=== PATIENT | male | born 1975 | race African-American/Black ===

== ENCOUNTER 2019-12-08 17:54 | Inpatient (IN) ==
--- NOTE | 2019-12-08 18:10 | DR.FEVERAD ---
HPI Time seen Time Seen by Provider: 12/08/19 18:07 PCP Primary Care Physician: CAMILLA HPI Comment HPI Comment: 44 yo aam w/ prev hx of htn presents w/ myalgias, cough, fatigue, n/v/d x 6 days. Swabed for covid earlier in month which was negative. No CP. No blood per rectum. No urinary sx's. Complaints/Symptoms Chief Complaint:: PT C/O SHORTNESS OF BREATH, FEVER, BODY ACHES, HEADACHE. PT STATES HE WAS DIAGNOSED WITH COVID TODAY. PT HAS BEEN HAVING SYMPTOMS FOR APPROX 6 DAYS. COVID-19 Coronavirus risk:travel/contact w/high risk person: No Has patient experienced Coronavirus symptoms: Yes Coronavirus symptoms experienced: Fever, Coughing and Shortness of Breath Source History Provided: Patient Mode of Arrival Mode of Arrival: Ambulatory Timing Onset of Chief Complaint: 12/02/19 Came on: Gradually Duration Duration: Since Onset How lon Duration: Days Context Symptoms: Fever, Chills, Cough and SOB; denies Ear pain, Sore throat, Dysuria, Frequency and Rash History of: denies Diabetes Modifying factors Modifying factors: Tylenol Associated signs and symptoms Associated signs and symptoms: Weakness, Myalgia, Headache, Nausea and Vomiting; denies Lethargy, Confusion and Abdominal pain PMH PMH Past Medical History: Yes Past Medical History: Hypertension Past Surgical History: Yes Surgical History: Joint Replacement Family History History of Family Medical Conditions: Yes Family Medical History: Hypertension Social History Does any household member use tobacco: No Alcohol Use: Occasionally Do you use any recreational Drugs:: No Lives With: Family Lives Where: Home Travel Risk Coronavirus risk:travel/contact w/high risk person: No Has patient experienced Coronavirus symptoms: Yes Coronavirus symptoms experienced: Fever, Coughing and Shortness of Breath Infectious screening In the last 2 months have you had wt loss of >10#?: NO Have you had fever, night sweats or hemotysis?: No Have you traveled outside the country in the last 6 months?: No Isolation: Droplet ROS Review of Systems Constitutional: Chills, Fever, Malaise and Fatigue Eyes: No Symptoms Reported ENTM: No Symptoms Reported Respiratoy: Productive Cough and Short of Breath Cardiovascular: negative Chest Pain, Palpitations and Syncope Gastrointestinal/Abdominal: No Symptoms Reported Genitourinary: No Symptoms Reported Neurological: No Symptoms Reported Musculoskeletal: No Symptoms Reported Integumentary: No Symptoms Reported Hematologic/Lymphatic: No Symptoms Reported Endocrine: No Symptoms Reported Psychiatric: No Symptoms Reported All Other Systems: Reviewed and Negative PE Vital Signs Vitals: Temperature 97.5 F Pulse Rate 101 Respiratory Rate 24 Blood Pressure 136/78 O2 Sat by Pulse Oximetry 89 General Limitations: No Limitations General Appearance: Alert and In No Apparent Distress Head Head Exam: Normal Inspection Eyes Eye exam: Normal Appearance ENT ENT Exam: Normal Exam Neck Neck Exam: Normal Inspection Respiratory Respiratory Exam: negative Accessory Muscle Use, Chest Wall Tenderness and Respiratory Distress Respiratory Exam: Bilateral: Rhonchi Cardiovascular Cardiovascular Exam: Regular Rate and Normal Rhythm Abdominal Exam Abdominal Exam: Normal Inspection, Normal Bowel Sounds and Soft Extremities Extremities Exam: Normal Inspection Back Back Exam: Normal Inspection Neurologic Neurological Exam: Alert and Oriented X3 Psychiatric Psychiatric Exam: Normal Affect and Normal Mood Skin Skin Exam: Warm, Dry, Intact and Normal Color MDM Differential Diagnosis Differential Diagnosis: Hypoxemia, Influenza, Pulmonary embolus, Pneumonia, Sepsis and Viral syndrome COURSE Treatment Treatment: 44 yo m w/ covid like sx's. CXR w/ multifocal infiltrate. Hypoxemia per abg requiring supplemental o2. Inflammatory markers elevated. Azithro/ Rocephin/ Decadron given. d/w Dr Bear whom agrees to admit. ROR Labs Reviewed Result Diagrams: 12/08/19 18:40 12/08/19 18:40 Laboratory: WBC 5.4 X10^3/uL (3.6-10.0) 12/08/19 18:40 RBC 4.97 X10^6/uL (4.7-6.0) 12/08/19 18:40 Hgb 14.6 g/dL (13.5-18.0) 12/08/19 18:40 Hct 42.0 % (42.0-54.0) 12/08/19 18:40 MCV 84.5 fL (80.0-100.0) 12/08/19 18:40 MCH 29.3 pg (27.0-34.0) 12/08/19 18:40 MCHC 34.7 g/dL (33.0-35.0) 12/08/19 18:40 RDW 13.9 % (11.6-16.5) 12/08/19 18:40 Plt Count 195 X10^3/uL (150.0-450.0) 12/08/19 18:40 MPV 9.1 fL (7.4-11.0) 12/08/19 18:40 Neut % (Auto) 71.4 % (42.0-75.0) 12/08/19 18:40 Lymph % (Auto) 22.3 % (21.0-51.0) 12/08/19 18:40 [place] % (Auto) 6.0 % (0.0-13.0) 12/08/19 18:40 Eos % (Auto) 0.0 % (0.9-2.9) L 12/08/19 18:40 Baso % (Auto) 0.3 % (0.2-1.0) 12/08/19 18:40 Neut # (Auto) 3.9 x10^3/uL (2.2-4.8) 12/08/19 18:40 Lymph # (Auto) 1.2 X10^3/uL (1.3-2.9) L 12/08/19 18:40 [place] # (Auto) 0.3 x10^3/uL (0.3-0.8) 12/08/19 18:40 Eos # (Auto) 0.0 x10^3/uL (0.0-0.2) 12/08/19 18:40 Baso # (Auto) 0.0 X10^3/uL (0.0-0.1) 12/08/19 18:40 Absolute Nucleated RBC 0.5 /100WBC 12/08/19 18:40 Sample Site Rrad 12/08/19 19:38 ABG pH 7.460 (7.35-7.45) H 12/08/19 19:38 ABG pCO2 40.0 mmHg (35.0-45.0) 12/08/19 19:38 ABG pO2 54.0 mmHg (80.0-100.0) L 12/08/19 19:38 ABG HCO3 28.4 mmol/L (22-26) H 12/08/19 19:38 ABG O2 Saturation 89.0 % (90-100) L 12/08/19 19:38 ABG Base Excess 4.2 mmol/L (-2.0-2.0) H 12/08/19 19:38 Julian Test Pos 12/08/19 19:38 A-a Gradient 46.0 mmHg 12/08/19 19:38 FiO2 21.0 12/08/19 19:38 Blood Gas Comments Lexus abg well=mtf 12/08/19 19:38 Sodium 141 mmol/L (136-145) 12/08/19 18:40 Corrected Sodium TNP 12/08/19 18:40 Potassium 3.8 mmol/L (3.5-5.1) 12/08/19 18:40 Chloride 103 mmol/L (98-107) 12/08/19 18:40 Carbon Dioxide 30.1 mmol/L (21-32) 12/08/19 18:40 BUN 17 mg/dL (7-18) 12/08/19 18:40 Creatinine 1.44 mg/dL (0.70-1.30) H 12/08/19 18:40 Est GFR (MDRD) Af Amer > 60 (>60) 12/08/19 18:40 Est GFR (MDRD) Non-Af 57 (>60) L 12/08/19 18:40 Glucose 95 mg/dL (65-99) 12/08/19 18:40 Lactic Acid 1.4 mmol/L (0.4-2.0) 12/08/19 18:40 Calcium 8.7 mg/dL (8.5-10.1) 12/08/19 18:40 Corrected Calcium TNP 12/08/19 18:40 Ferritin 1344 ng/mL (26-388) H 12/08/19 18:40 Total Bilirubin 1.00 mg/dL (0.2-1.0) 12/08/19 18:40 AST 73 Units/L (15-37) H 12/08/19 18:40 ALT 86 Units/L (12-78) H 12/08/19 18:40 Alkaline Phosphatase 72 Units/L (46-116) 12/08/19 18:40 Lactate Dehydrogenase 464 Units/L (85-227) H 12/08/19 18:40 Troponin I 0.04 ng/mL (0-1.5) 12/08/19 18:40 C-Reactive Protein 25.00 mg/L (0-3.0) H 12/08/19 18:40 Total Protein 9.1 g/dL (6.4-8.2) H 12/08/19 18:40 Albumin 3.5 g/dL (3.4-5.0) 12/08/19 18:40 Globulin 5.6 g/dL (2.5-4.5) H 12/08/19 18:40 Albumin/Globulin Ratio 0.6 Ratio (1.1-2.1) L 12/08/19 18:40 EKG Rate: 95 [place]: Normal Rhythm: NSR Block: None ST: Normal (artifact ) Opioid Opioid Risk Tool Age (Michael box if 16-45): No History of Preadolescent Sexual Abuse: No Total: 0 Total Score Risk Category: Low Risk Copyright: Lauri LUCOI predicting aberrant behaviors Diagnosis Discharge Problem: COVID-19, Acute hypoxemic respiratory failure due to COVID-19 Community acquired pneumonia Qualifiers: Laterality: unspecified laterality Qualified Code(s): J18.9 - Pneumonia, unspecified organism
--- NOTE | 2019-12-08 18:32 | RAD ---
CHEST, 1 VIEWHISTORY: covid +Study: Single view of the chest.Comparison:NoneFindings:The cardiomediastinal silhouette is normal. Bilateral interstitial prominence, possible early alveolar infiltrates. No focal consolidations, pleural effusions or pneumothorax. Osseous structures demonstrate no acute abnormality.IMPRESSION:1. Bilateral interstitial prominence and early alveolar infiltrates. Findings may represent atypical infection, including viral etiologies.Electronically signed by: RHIANNON GIORDANO (Dec 08, 2019 18:31:58)
[2019-12-08 18:58] LABS: BASOPHILS % (AUTO) 0.3 % (0.2-1.0); HEMOGLOBIN 14.6 g/dL (13.5-18.0); LYMPHOCYTES # (AUTO) 1.2 X10^3/uL (1.3-2.9); LYMPHOCYTES % (AUTO) 22.3 % (21.0-51.0); MEAN CORPUSCULAR HEMOGLOBIN 29.3 pg (27.0-34.0); MEAN CORPUSCULAR HGB CONC 34.7 g/dL (33.0-35.0); MEAN CORPUSCULAR VOLUME 84.5 fL (80.0-100.0); MEAN PLATELET VOLUME 9.1 fL (7.4-11.0); MONOCYTES # (AUTO) 0.3 x10^3/uL (0.3-0.8); NEUTROPHILS # (AUTO) 3.9 x10^3/uL (2.2-4.8); NEUTROPHILS % (AUTO) 71.4 % (42.0-75.0); PLATELET COUNT 195 X10^3/uL (150.0-450.0); RED BLOOD COUNT 4.97 X10^6/uL (4.7-6.0); RED CELL DISTRIBUTION WIDTH 13.9 % (11.6-16.5); WHITE BLOOD COUNT 5.4 X10^3/uL (3.6-10.0)
[2019-12-08 19:15] LABS: ALANINE AMINOTRANSFERASE 86 Units/L (12-78); ALBUMIN 3.5 g/dL (3.4-5.0); ALKALINE PHOSPHATASE 72 Units/L (46-116); ASPARTATE AMINO TRANSFERASE 73 Units/L (15-37); BLOOD UREA NITROGEN 17 mg/dL (7-18); CALCIUM 8.7 mg/dL (8.5-10.1); CARBON DIOXIDE 30.1 mmol/L (21-32); CHLORIDE 103 mmol/L (98-107); CREATININE 1.44 mg/dL (0.70-1.30); LACTATE DEHYDROGENASE 464 Units/L (85-227); SODIUM 141 mmol/L (136-145); TOTAL PROTEIN 9.1 g/dL (6.4-8.2); TROPONIN I 0.04 ng/mL (0-1.5); eGFR NON BLACK RACES 57 (>60)
[2019-12-08 19:16] LABS: LACTIC ACID 1.4 mmol/L (0.4-2.0)
[2019-12-08] MEDS ORDERED: ZITHROMAX INJ 500 MG VIAL 500 MG in D5W 250 ML IV 250 ML IV SCH (19:36)
[2019-12-08 19:45] LABS: ABG BASE EXCESS 4.2 mmol/L (-2.0-2.0); ABG HCO3 28.4 mmol/L (22-26)
[2019-12-08 19:46] LABS: ABG ALLEN TEST POS
[2019-12-08] MEDS ORDERED: ROCEPHIN VIAL 1 GRAM 1 G in NS 100 ML IV + SPIKE MINIBAG* 100 ML IV SCH (20:00)
[2019-12-08] MEDS ORDERED: DECADRON INJ IV SCH (20:00)
[2019-12-08] MEDS ORDERED: ZITHROMAX INJ 500 MG VIAL IV ONE (23:23)
[2019-12-08] MEDS ORDERED: NS 250 ML IV 250 ML IV ONE (23:23)
[2019-12-08] MEDS ORDERED: LOVENOX INJ 40 MG SYR SC ONE (23:33)
[2019-12-08] MEDS: LOVENOX INJ 30 MG SYR SC SCH (23:36)
[2019-12-08] MEDS ORDERED: SOLU-Medrol 125 MG VIAL ONE (23:37)
[2019-12-08] MEDS ORDERED: REMDESIVIR (INVESTIGATIONAL DRUG GS-5734) 200 MG in NS 250 ML IV 250 ML IV SCH (23:45)
[2019-12-09] MEDS: SOLU-Medrol 125 MG VIAL IVP SCH ×4 (00:51→21:16)
[2019-12-09] MEDS: ZOSYN VIAL 4.5 GRAMS 4.5 G in NS 100 ML IV + SPIKE MINIBAG* 100 ML IV SCH ×4 (01:30→22:40)
[2019-12-09] MEDS: ASCORBIC ACID INJ MULTI-DOSE VIAL 1,500 MG in NS 100 ML IV 100 ML IV SCH ×4 (03:27→20:54)
[2019-12-09 05:42] LABS: BASOPHILS % (AUTO) 0.1 % (0.2-1.0); LYMPHOCYTES # (AUTO) 0.8 X10^3/uL (1.3-2.9); LYMPHOCYTES % (AUTO) 13.9 % (21.0-51.0); MEAN CORPUSCULAR HEMOGLOBIN 29.4 pg (27.0-34.0); MEAN CORPUSCULAR HGB CONC 34.9 g/dL (33.0-35.0); MEAN CORPUSCULAR VOLUME 84.2 fL (80.0-100.0); MEAN PLATELET VOLUME 9.1 fL (7.4-11.0); MONOCYTES # (AUTO) 0.1 x10^3/uL (0.3-0.8); MONOCYTES % (AUTO) 2.3 % (0.0-13.0); NEUTROPHILS # (AUTO) 4.8 x10^3/uL (2.2-4.8); NEUTROPHILS % (AUTO) 83.7 % (42.0-75.0); PLATELET COUNT 204 X10^3/uL (150.0-450.0); RED BLOOD COUNT 4.75 X10^6/uL (4.7-6.0); RED CELL DISTRIBUTION WIDTH 14.1 % (11.6-16.5); WHITE BLOOD COUNT 5.7 X10^3/uL (3.6-10.0)
[2019-12-09 05:52] LABS: ALANINE AMINOTRANSFERASE 90 Units/L (12-78); ALBUMIN 3.3 g/dL (3.4-5.0); ALKALINE PHOSPHATASE 68 Units/L (46-116); ASPARTATE AMINO TRANSFERASE 73 Units/L (15-37); BLOOD UREA NITROGEN 20 mg/dL (7-18); CALCIUM 8.5 mg/dL (8.5-10.1); CHLORIDE 103 mmol/L (98-107); COR CA(FOR HYPOALB) 9.1 mg/dL (8.5-10.1); COR NA(FOR HYPERGLY) 142 mmol/L (136-145); CREATININE 1.55 mg/dL (0.70-1.30); SODIUM 141 mmol/L (136-145); TOTAL PROTEIN 8.7 g/dL (6.4-8.2); eGFR NON BLACK RACES 52 (>60)
[2019-12-09] MEDS ORDERED: VITAMIN D (1.25MG) PO SCH (09:00)
[2019-12-09] MEDS ORDERED: VITAMIN A PO SCH (09:00)
[2019-12-09] MEDS: TRICOR TAB 160 MG PO SCH (09:04)
[2019-12-09] MEDS: LOVENOX INJ 30 MG SYR SC SCH ×2 (09:04→20:54)
[2019-12-09] MEDS: ZINC SULFATE PO SCH ×2 (09:05→20:55)
[2019-12-09] MEDS ORDERED: NORCO 5/325 MG TAB PO PRN (11:34)
[2019-12-09] MEDS: PLAQUENIL PO SCH ×2 (14:49→20:55)
[2019-12-09] MEDS: ROBITUSSIN DM PO SCH ×3 (14:49→20:56)
[2019-12-09] MEDS: PROTONIX INJ 40 MG VIAL IVP SCH (15:15)
[2019-12-09] MEDS: ZITHROMAX INJ 500 MG VIAL 500 MG in D5W 250 ML IV 250 ML IV SCH (23:18)
[2019-12-10] MEDS: REMDESIVIR (INVESTIGATIONAL DRUG GS-5734) 100 MG in NS 250 ML IV 250 ML IV SCH ×2 (01:16→22:30)
[2019-12-10] MEDS: ASCORBIC ACID INJ MULTI-DOSE VIAL 1,500 MG in NS 100 ML IV 100 ML IV SCH ×4 (03:30→20:35)
[2019-12-10] MEDS: ZOSYN VIAL 4.5 GRAMS 4.5 G in NS 100 ML IV + SPIKE MINIBAG* 100 ML IV SCH ×3 (05:36→21:11)
[2019-12-10] MEDS: SOLU-Medrol 125 MG VIAL IVP SCH ×3 (05:36→21:06)
[2019-12-10 05:55] LABS: BASOPHILS % (AUTO) 0.2 % (0.2-1.0); HEMATOCRIT 39.1 % (42.0-54.0); HEMOGLOBIN 13.5 g/dL (13.5-18.0); LYMPHOCYTES # (AUTO) 0.9 X10^3/uL (1.3-2.9); LYMPHOCYTES % (AUTO) 15.8 % (21.0-51.0); MEAN CORPUSCULAR HEMOGLOBIN 29.3 pg (27.0-34.0); MEAN CORPUSCULAR HGB CONC 34.6 g/dL (33.0-35.0); MEAN CORPUSCULAR VOLUME 84.6 fL (80.0-100.0); MEAN PLATELET VOLUME 9.5 fL (7.4-11.0); MONOCYTES # (AUTO) 0.4 x10^3/uL (0.3-0.8); MONOCYTES % (AUTO) 6.7 % (0.0-13.0); NEUTROPHILS # (AUTO) 4.5 x10^3/uL (2.2-4.8); NEUTROPHILS % (AUTO) 77.3 % (42.0-75.0); PLATELET COUNT 270 X10^3/uL (150.0-450.0); RED BLOOD COUNT 4.63 X10^6/uL (4.7-6.0); RED CELL DISTRIBUTION WIDTH 14.3 % (11.6-16.5); WHITE BLOOD COUNT 5.8 X10^3/uL (3.6-10.0)
[2019-12-10 06:10] LABS: ALANINE AMINOTRANSFERASE 84 Units/L (12-78); ALBUMIN 3.1 g/dL (3.4-5.0); ALKALINE PHOSPHATASE 63 Units/L (46-116); ASPARTATE AMINO TRANSFERASE 53 Units/L (15-37); BLOOD UREA NITROGEN 25 mg/dL (7-18); CALCIUM 8.6 mg/dL (8.5-10.1); CARBON DIOXIDE 25.3 mmol/L (21-32); CHLORIDE 104 mmol/L (98-107); COR CA(FOR HYPOALB) 9.3 mg/dL (8.5-10.1); COR NA(FOR HYPERGLY) 141 mmol/L (136-145); CREATININE 1.35 mg/dL (0.70-1.30); SODIUM 140 mmol/L (136-145); TOTAL PROTEIN 8.6 g/dL (6.4-8.2); eGFR NON BLACK RACES > 60 (>60)
[2019-12-10] MEDS: LOVENOX INJ 30 MG SYR SC SCH ×2 (09:17→20:35)
[2019-12-10] MEDS: PLAQUENIL PO SCH ×2 (09:21→20:35)
[2019-12-10] MEDS: ROBITUSSIN DM PO SCH ×4 (09:22→20:36)
[2019-12-10] MEDS: PROTONIX INJ 40 MG VIAL IVP SCH (09:22)
[2019-12-10] MEDS: TRICOR TAB 160 MG PO SCH (09:23)
[2019-12-10] MEDS: VITAMIN A PO SCH (09:24)
[2019-12-10] MEDS: ZINC SULFATE PO SCH ×2 (09:24→20:36)
[2019-12-10] MEDS: VITAMIN D3 125 mcg (5,000 UNITS) PO SCH (09:24)
--- NOTE | 2019-12-10 10:26 | RAD ---
HISTORYSOB, HTN, COVID +STUDYCHEST, 1 [id number]/26/2020TECHNIQUEAP view of the chestFINDINGSCardiac silhouette is stably enlarged. Stable bilateral airspace and interstitial opacities. No definite pleural effusion or pneumothorax.IMPRESSIONCardiomegaly with stable airspace and interstitial opacities that may represent atypical pneumonia.Electronically signed by: Renan Fletcher (Dec 10, 2019 10:26:32)
[2019-12-10 10:45] VITALS: BMI 50.2
[2019-12-10] MEDS ORDERED: NS 250 ML IV 250 ML IV ONE (10:49)
[2019-12-10 11:31] LABS: ABG BASE EXCESS 3.5 mmol/L (-2.0-2.0); ABG HCO3 28.5 mmol/L (22-26)
[2019-12-10] MEDS: ZITHROMAX INJ 500 MG VIAL 500 MG in D5W 250 ML IV 250 ML IV SCH (22:31)
[2019-12-11] MEDS: ASCORBIC ACID INJ MULTI-DOSE VIAL 1,500 MG in NS 100 ML IV 100 ML IV SCH ×4 (03:26→20:22)
[2019-12-11] MEDS ORDERED: NS 100 ML IV + SPIKE MINIBAG* 100 ML IV ONE (05:12)
[2019-12-11 05:43] LABS: BASOPHILS % (AUTO) 0.3 % (0.2-1.0); HEMATOCRIT 37.9 % (42.0-54.0); HEMOGLOBIN 13.1 g/dL (13.5-18.0); LYMPHOCYTES # (AUTO) 1.1 X10^3/uL (1.3-2.9); MEAN CORPUSCULAR HEMOGLOBIN 28.9 pg (27.0-34.0); MEAN CORPUSCULAR HGB CONC 34.5 g/dL (33.0-35.0); MEAN CORPUSCULAR VOLUME 83.8 fL (80.0-100.0); MEAN PLATELET VOLUME 9.3 fL (7.4-11.0); MONOCYTES # (AUTO) 0.4 x10^3/uL (0.3-0.8); MONOCYTES % (AUTO) 4.9 % (0.0-13.0); NEUTROPHILS # (AUTO) 7.4 x10^3/uL (2.2-4.8); NEUTROPHILS % (AUTO) 82.8 % (42.0-75.0); PLATELET COUNT 307 X10^3/uL (150.0-450.0); RED BLOOD COUNT 4.52 X10^6/uL (4.7-6.0); RED CELL DISTRIBUTION WIDTH 14.3 % (11.6-16.5); WHITE BLOOD COUNT 8.9 X10^3/uL (3.6-10.0)
[2019-12-11 05:49] LABS: ALANINE AMINOTRANSFERASE 67 Units/L (12-78); ALBUMIN 2.8 g/dL (3.4-5.0); ALKALINE PHOSPHATASE 58 Units/L (46-116); ASPARTATE AMINO TRANSFERASE 34 Units/L (15-37); BLOOD UREA NITROGEN 19 mg/dL (7-18); CALCIUM 8.2 mg/dL (8.5-10.1); CARBON DIOXIDE 27.3 mmol/L (21-32); CHLORIDE 106 mmol/L (98-107); COR CA(FOR HYPOALB) 9.2 mg/dL (8.5-10.1); COR NA(FOR HYPERGLY) 142 mmol/L (136-145); SODIUM 141 mmol/L (136-145); TOTAL PROTEIN 7.7 g/dL (6.4-8.2); eGFR NON BLACK RACES > 60 (>60)
[2019-12-11] MEDS: SOLU-Medrol 125 MG VIAL IVP SCH ×3 (05:57→21:41)
[2019-12-11] MEDS: ZOSYN VIAL 4.5 GRAMS 4.5 G in NS 100 ML IV + SPIKE MINIBAG* 100 ML IV SCH ×3 (05:57→21:00)
[2019-12-11] MEDS: LOVENOX INJ 30 MG SYR SC SCH ×2 (08:16→20:23)
[2019-12-11] MEDS: PLAQUENIL PO SCH ×2 (08:17→20:23)
[2019-12-11] MEDS: ROBITUSSIN DM PO SCH ×4 (08:17→20:24)
[2019-12-11] MEDS: ZINC SULFATE PO SCH ×2 (08:17→20:23)
[2019-12-11] MEDS: TRICOR TAB 160 MG PO SCH (08:17)
[2019-12-11] MEDS: VITAMIN A PO SCH (08:17)
[2019-12-11] MEDS: VITAMIN D3 125 mcg (5,000 UNITS) PO SCH (08:18)
[2019-12-11] MEDS: PROTONIX INJ 40 MG VIAL IVP SCH (08:18)
[2019-12-11] MEDS ORDERED: NS 250 ML IV 250 ML IV ONE (22:24)
[2019-12-11] MEDS: ZITHROMAX INJ 500 MG VIAL 500 MG in D5W 250 ML IV 250 ML IV SCH (22:39)
[2019-12-11] MEDS: REMDESIVIR (INVESTIGATIONAL DRUG GS-5734) 100 MG in NS 250 ML IV 250 ML IV SCH (22:39)
[2019-12-12] MEDS: ASCORBIC ACID INJ MULTI-DOSE VIAL 1,500 MG in NS 100 ML IV 100 ML IV SCH ×4 (03:00→20:50)
[2019-12-12] MEDS: SOLU-Medrol 125 MG VIAL IVP SCH ×3 (05:44→21:00)
[2019-12-12] MEDS: ZOSYN VIAL 4.5 GRAMS 4.5 G in NS 100 ML IV + SPIKE MINIBAG* 100 ML IV SCH ×3 (05:44→22:00)
[2019-12-12 05:56] LABS: BASOPHILS % (AUTO) 0.3 % (0.2-1.0); HEMATOCRIT 39.5 % (42.0-54.0); HEMOGLOBIN 13.7 g/dL (13.5-18.0); LYMPHOCYTES % (AUTO) 11.1 % (21.0-51.0); MEAN CORPUSCULAR HEMOGLOBIN 29.2 pg (27.0-34.0); MEAN CORPUSCULAR HGB CONC 34.7 g/dL (33.0-35.0); MEAN CORPUSCULAR VOLUME 84.2 fL (80.0-100.0); MEAN PLATELET VOLUME 8.9 fL (7.4-11.0); MONOCYTES # (AUTO) 0.6 x10^3/uL (0.3-0.8); MONOCYTES % (AUTO) 6.6 % (0.0-13.0); NEUTROPHILS # (AUTO) 7.5 x10^3/uL (2.2-4.8); PLATELET COUNT 336 X10^3/uL (150.0-450.0); RED BLOOD COUNT 4.69 X10^6/uL (4.7-6.0); RED CELL DISTRIBUTION WIDTH 14.1 % (11.6-16.5); WHITE BLOOD COUNT 9.2 X10^3/uL (3.6-10.0)
[2019-12-12 06:19] LABS: ALANINE AMINOTRANSFERASE 72 Units/L (12-78); ALBUMIN 2.8 g/dL (3.4-5.0); ALKALINE PHOSPHATASE 60 Units/L (46-116); ASPARTATE AMINO TRANSFERASE 42 Units/L (15-37); BLOOD UREA NITROGEN 16 mg/dL (7-18); CALCIUM 8.2 mg/dL (8.5-10.1); CARBON DIOXIDE 27.1 mmol/L (21-32); CHLORIDE 105 mmol/L (98-107); COR CA(FOR HYPOALB) 9.2 mg/dL (8.5-10.1); COR NA(FOR HYPERGLY) 142 mmol/L (136-145); CREATININE 1.18 mg/dL (0.70-1.30); SODIUM 141 mmol/L (136-145); TOTAL PROTEIN 7.7 g/dL (6.4-8.2); eGFR NON BLACK RACES > 60 (>60)
[2019-12-12] MEDS: VITAMIN A PO SCH (09:10)
[2019-12-12] MEDS: ZINC SULFATE PO SCH ×2 (09:10→20:50)
[2019-12-12] MEDS: PLAQUENIL PO SCH ×2 (09:10→20:50)
[2019-12-12] MEDS: TRICOR TAB 160 MG PO SCH (09:10)
[2019-12-12] MEDS: VITAMIN D3 125 mcg (5,000 UNITS) PO SCH (09:11)
[2019-12-12] MEDS: ROBITUSSIN DM PO SCH ×4 (09:11→20:50)
[2019-12-12] MEDS: PROTONIX INJ 40 MG VIAL IVP SCH (09:11)
[2019-12-12] MEDS: LOVENOX INJ 30 MG SYR SC SCH ×2 (09:12→21:00)
[2019-12-12 09:37] LABS: ABG BASE EXCESS 5.6 mmol/L (-2.0-2.0); ABG HCO3 29.8 mmol/L (22-26); FRACTIONATED INSPIRED OXYGEN 21
--- NOTE | 2019-12-12 10:53 | RAD ---
HISTORYPNEUMONIA, COVID +STUDYCHEST x-ray, 1 VIEWCOMPARISONX-ray 12/10/2019FINDINGSThe trachea is midline. The cardiac silhouette is enlarged with pulmonary venous congestion.Moderate vague infiltrates are seen throughout the lungs that could be due to COVID 19 pneumonia and/or pulmonary edema. No pneumothorax or pleural effusion is seen.No acute bony abnormality is seen.IMPRESSIONProbable CHF.Bilateral vague lung infiltrates could be due to COVID-19 pneumonia and/or pulmonary edema.Appearance is very similar to prior study.Electronically signed by: José Rob (Dec 12, 2019 10:53:51)
[2019-12-12] MEDS ORDERED: POTASSIUM CHLORIDE LIQ 20 MEQ UDC PO PRN (19:23)
[2019-12-12] MEDS ORDERED: POTASSIUM CHL 40 MEQ/NS 0.45% 500 ML IV PRN (19:23)
[2019-12-12] MEDS ORDERED: MAGNESIUM SULFATE 1 GRAM/100 mL PREMIX 1 GM/100 ML BAG IV PRN (19:23)
[2019-12-12] MEDS ORDERED: KLOR-CON PO PRN (19:23)
[2019-12-12] MEDS ORDERED: K-RIDER 10 MEQ/NS 100 ML 10 MEQ/100 ML BAG IV PRN (19:23)
[2019-12-12] MEDS ORDERED: MICRO K EXTEN CAP 10 MEQ PO PRN (19:23)
[2019-12-12] MEDS ORDERED: POTASSIUM CHL 60 MEQ/NS 0.45% 500 ML IV PRN (19:23)
[2019-12-12] MEDS: K-DUR TAB 20 MEQ PO PRN (23:00)
[2019-12-12] MEDS: REMDESIVIR (INVESTIGATIONAL DRUG GS-5734) 100 MG in NS 250 ML IV 250 ML IV SCH (23:00)
[2019-12-13] MEDS: ASCORBIC ACID INJ MULTI-DOSE VIAL 1,500 MG in NS 100 ML IV 100 ML IV SCH ×4 (03:40→20:01)
[2019-12-13] MEDS: ZOSYN VIAL 4.5 GRAMS 4.5 G in NS 100 ML IV + SPIKE MINIBAG* 100 ML IV SCH ×3 (06:00→22:00)
[2019-12-13] MEDS: SOLU-Medrol 125 MG VIAL IVP SCH ×3 (06:00→22:56)
[2019-12-13 06:12] LABS: BASOPHILS % (AUTO) 0.2 % (0.2-1.0); HEMATOCRIT 40.7 % (42.0-54.0); HEMOGLOBIN 14.2 g/dL (13.5-18.0); LYMPHOCYTES # (AUTO) 1.9 X10^3/uL (1.3-2.9); LYMPHOCYTES % (AUTO) 17.1 % (21.0-51.0); MEAN CORPUSCULAR HEMOGLOBIN 29.5 pg (27.0-34.0); MEAN CORPUSCULAR HGB CONC 34.9 g/dL (33.0-35.0); MEAN CORPUSCULAR VOLUME 84.5 fL (80.0-100.0); MEAN PLATELET VOLUME 8.7 fL (7.4-11.0); MONOCYTES # (AUTO) 1.1 x10^3/uL (0.3-0.8); MONOCYTES % (AUTO) 9.7 % (0.0-13.0); PLATELET COUNT 364 X10^3/uL (150.0-450.0); RED BLOOD COUNT 4.81 X10^6/uL (4.7-6.0); RED CELL DISTRIBUTION WIDTH 14.4 % (11.6-16.5); WHITE BLOOD COUNT 10.9 X10^3/uL (3.6-10.0)
[2019-12-13 06:31] LABS: ALANINE AMINOTRANSFERASE 98 Units/L (12-78); ALBUMIN 2.7 g/dL (3.4-5.0); ALKALINE PHOSPHATASE 60 Units/L (46-116); ASPARTATE AMINO TRANSFERASE 45 Units/L (15-37); BLOOD UREA NITROGEN 18 mg/dL (7-18); CALCIUM 8.3 mg/dL (8.5-10.1); CARBON DIOXIDE 30.7 mmol/L (21-32); CHLORIDE 104 mmol/L (98-107); COR CA(FOR HYPOALB) 9.3 mg/dL (8.5-10.1); COR NA(FOR HYPERGLY) 141 mmol/L (136-145); MAGNESIUM 2.1 mg/dL (1.7-2.9); SODIUM 141 mmol/L (136-145); TOTAL PROTEIN 7.8 g/dL (6.4-8.2); eGFR NON BLACK RACES > 60 (>60)
--- NOTE | 2019-12-13 07:33 | RAD ---
HISTORYFollow-up COVID-19STUDYChest AP [id number]/30/2020FINDINGSThe heart remains enlarged. there has been interval development of bilateral perihilar interstitial changes slightly more prominent on the right than the left. This could be due to pneumonitis or edema. No alveolar infiltrates, alveolar edema, ground-glass infiltrates or pleural effusions are identified. Mild hypo inflation is present. Bony thorax is unremarkable.IMPRESSIONNo change cardiomegalyInterval development of bilateral perihilar interstitial lung changes which could be related to pneumonitis or edema.Electronically signed by: DENNIS SOLOMON (Dec 13, 2019 07:32:52)
[2019-12-13] MEDS: DUONEB 0.5 MG/3 MG (3 mL) NEB SCH ×4 (08:50→21:27)
[2019-12-13] MEDS: ROBITUSSIN DM PO SCH ×4 (08:59→20:02)
[2019-12-13] MEDS: PROTONIX INJ 40 MG VIAL IVP SCH (08:59)
[2019-12-13] MEDS: ZINC SULFATE PO SCH ×2 (09:00→20:03)
[2019-12-13] MEDS: ZESTRIL TAB 10 MG PO SCH (09:00)
[2019-12-13] MEDS: VITAMIN A PO SCH (09:00)
[2019-12-13] MEDS ORDERED: K-DUR TAB 20 MEQ PO SCH (09:00)
[2019-12-13] MEDS: TRICOR TAB 160 MG PO SCH (09:01)
[2019-12-13] MEDS: VITAMIN D3 125 mcg (5,000 UNITS) PO SCH (09:01)
[2019-12-13] MEDS: PLAQUENIL PO SCH ×2 (09:01→20:02)
[2019-12-13] MEDS: LOVENOX INJ 30 MG SYR SC SCH ×2 (09:01→20:02)
[2019-12-13] MEDS: LASIX IVP SCH (09:05)
[2019-12-13] MEDS ORDERED: SOLU-Medrol 40 MG VIAL ONE (12:41)
[2019-12-13] MEDS ORDERED: ZOSYN VIAL 4.5 GRAMS IV ONE (12:41)
[2019-12-13] MEDS ORDERED: NS 100 ML IV + SPIKE MINIBAG* 100 ML IV ONE (12:41)
[2019-12-13] MEDS ORDERED: LOMOTIL PO PRN (16:22)
[2019-12-13] MEDS ORDERED: LOMOTIL ONE (16:29)
[2019-12-13] MEDS ORDERED: NS 250 ML IV 250 ML IV ONE (20:33)
[2019-12-13] MEDS: ZITHROMAX INJ 500 MG VIAL 500 MG in D5W 250 ML IV 250 ML IV SCH ×3 (22:57)
[2019-12-14] MEDS: DUONEB 0.5 MG/3 MG (3 mL) NEB SCH ×3 (00:32→09:00)
[2019-12-14] MEDS: ASCORBIC ACID INJ MULTI-DOSE VIAL 1,500 MG in NS 100 ML IV 100 ML IV SCH ×2 (03:26→08:38)
[2019-12-14 05:24] LABS: BASOPHILS % (AUTO) 0.3 % (0.2-1.0); HEMATOCRIT 43.9 % (42.0-54.0); HEMOGLOBIN 15.1 g/dL (13.5-18.0); LYMPHOCYTES # (AUTO) 1.5 X10^3/uL (1.3-2.9); MEAN CORPUSCULAR HEMOGLOBIN 29.1 pg (27.0-34.0); MEAN CORPUSCULAR HGB CONC 34.4 g/dL (33.0-35.0); MEAN CORPUSCULAR VOLUME 84.6 fL (80.0-100.0); MEAN PLATELET VOLUME 9.1 fL (7.4-11.0); NEUTROPHILS # (AUTO) 8.7 x10^3/uL (2.2-4.8); NEUTROPHILS % (AUTO) 77.7 % (42.0-75.0); PLATELET COUNT 458 X10^3/uL (150.0-450.0); RED BLOOD COUNT 5.19 X10^6/uL (4.7-6.0); RED CELL DISTRIBUTION WIDTH 14.3 % (11.6-16.5); WHITE BLOOD COUNT 11.3 X10^3/uL (3.6-10.0)
[2019-12-14 05:39] LABS: ALANINE AMINOTRANSFERASE 99 Units/L (12-78); ALKALINE PHOSPHATASE 59 Units/L (46-116); ASPARTATE AMINO TRANSFERASE 31 Units/L (15-37); BLOOD UREA NITROGEN 23 mg/dL (7-18); CALCIUM 8.4 mg/dL (8.5-10.1); CARBON DIOXIDE 29.4 mmol/L (21-32); CHLORIDE 103 mmol/L (98-107); COR CA(FOR HYPOALB) 9.2 mg/dL (8.5-10.1); COR NA(FOR HYPERGLY) 142 mmol/L (136-145); CREATININE 1.33 mg/dL (0.70-1.30); SODIUM 141 mmol/L (136-145); TOTAL PROTEIN 8.3 g/dL (6.4-8.2); eGFR NON BLACK RACES > 60 (>60)
[2019-12-14] MEDS: SOLU-Medrol 125 MG VIAL IVP SCH (06:27)
[2019-12-14] MEDS: ZOSYN VIAL 4.5 GRAMS 4.5 G in NS 100 ML IV + SPIKE MINIBAG* 100 ML IV SCH (06:28)
[2019-12-14] MEDS: LOVENOX INJ 30 MG SYR SC SCH (08:39)
[2019-12-14] MEDS: LASIX IVP SCH (08:39)
[2019-12-14] MEDS: PLAQUENIL PO SCH (08:40)
[2019-12-14] MEDS: ROBITUSSIN DM PO SCH (08:40)
[2019-12-14] MEDS: PROTONIX INJ 40 MG VIAL IVP SCH (08:40)
[2019-12-14] MEDS: TRICOR TAB 160 MG PO SCH (08:41)
[2019-12-14] MEDS: VITAMIN D3 125 mcg (5,000 UNITS) PO SCH (08:41)
[2019-12-14] MEDS: VITAMIN A PO SCH (08:41)
[2019-12-14] MEDS: ZINC SULFATE PO SCH (08:42)
[2019-12-14] MEDS: ZESTRIL TAB 10 MG PO SCH (08:42)
[2019-12-14] MEDS: K-DUR TAB 20 MEQ PO PRN (08:43)
--- NOTE | 2019-12-14 10:50 | RAD ---
HISTORYCOVID POSITIVESTUDYCHEST, 1 [id number]/01/2020FINDINGSThe trachea is midline. The cardiac silhouette is widened but stable. Improving aeration in the lungs bilaterally. The bony thorax is unremarkable.IMPRESSIONImproving aeration in the bilateral lungs.Electronically signed by: DENNIS SOLOMON (Dec 14, 2019 10:52:19)
[2019-12-14 12:58] VITALS: BP 145/78
== END 2019-12-14 13:10 | disposition home or self-care (01) | DRG 177 ==
LOC: ER 17:59 → MED/SURG 21:47
PROVIDERS: ADMIT Internal Medicine; ATTEND Internal Medicine

== ENCOUNTER 2022-04-10 20:05 | Observation (INO) ==
--- NOTE | 2022-04-10 20:22 | DR.N/VMALE ---
HPI Time Seen Time Seen by Provider: 04/10/22 20:21 Primary Care Physician Primary Care Physician: SALUD HPI Comment HPI Comment: PATIENT IS 46YR OLD MALE IN ER WITH NAUSEA, VOMITING AND DIARRHEA THAT STARTED TONIGHT. HE WAS MOVING TV AND GOT DIZZY THEN N/V/D STARTED. HAVE HISTORY OF HYPERTENSION BUT NOT COMPLAINT WITH MEDICATIONS. HE IS SLEEPY IN ER BUT AROUSABLE. PATIENT IS SAID TO HAVE TAKEN XANAX IMG FROM FAMILY MEMBER BEFORE EMS WAS CALLED. Complaints Chief Complaint:: PT IN ED VIA STRETCHER PER [facility] WITH C/O NAUSEA, VOMITING AND DIARRHEA. PER EMS PT WAS MOVING A TV GOT DIZZY AND THE VOMITING AND DIARRHEA STARTED. PT STATED TO EMS THAT SOMEONE GAVE HIM SOMETHING TO SLEEP ABOUT 6PM. COVID-19 Coronavirus risk:travel/contact w/high risk person: No Has patient experienced Coronavirus symptoms: No Source History Provided: Patient and EMS Mode of Arrival Mode of Arrival: Stretcher Timing Onset of Chief Complaint: 04/10/22 PMH PMH Past Medical History: Yes Past Medical History: Hypertension Past Surgical History: Yes Surgical History: Ortho Surgery Past Surgical History Comment: RIGHT WRIST Family History History of Family Medical Conditions: Yes Family Medical History: Hypertension Social History Does patient currently use any type of tobacco product: No Have you used tobacco products in the last 12 months: No Type of Tobacco Use: None Does any household member use tobacco: No Alcohol Use: Occasionally Do you use any recreational Drugs:: No Lives With: Family Lives Where: Home Travel Risk Coronavirus risk:travel/contact w/high risk person: No Has patient experienced Coronavirus symptoms: No Infectious screening In the last 2 months have you had wt loss of >10#?: NO Have you had fever, night sweats or hemotysis?: No Have you traveled outside the country in the last 6 months?: No Isolation: Standard ROS Review of Systems Constitutional: negative Fever Eyes: No Symptoms Reported ENTM: No Symptoms Reported Respiratoy: No Symptoms Reported Cardiovascular: No Symptoms Reported Gastrointestinal/Abdominal: Nausea and Vomiting; negative Diarrhea Genitourinary: No Symptoms Reported Neurological: Headache, Weakness and Dizziness Musculoskeletal: No Symptoms Reported Integumentary: No Symptoms Reported Hematologic/Lymphatic: negative Easy Bruising Endocrine: No Symptoms Reported Psychiatric: No Symptoms Reported and Other (AMS, SLEEPING BUT AROUSABLE.) All Other Systems: Reviewed and Negative PE Vital Signs Vitals: Temperature 97.6 F Pulse Rate 73 Respiratory Rate 18 Blood Pressure [Left Arm] 145/78 Blood Pressure 143/82 O2 Sat by Pulse Oximetry 95 General Limitations: Altered Mental Status General Appearance: Alert and In No Apparent Distress Head Head Exam: Normal Inspection and Atraumatic Eyes Eye exam: negative Scleral Icterus or Conjunctival Injection ENT ENT Exam: Normal Oropharynx, Normal External Ear Exam and TM's Normal Bilaterally Neck Neck Exam: Normal Inspection and Trachea Midline; negative Tenderness Chest Chest Inspection: Normal Inspection and Symmetric Chest Wall Rise; negative Tenderness Respiratory Respiratory Exam: Normal Lung Sounds Bilat and Respiratory Distress; negative Accessory Muscle Use or Chest Wall Tenderness Respiratory Exam: Bilateral: Rhonchi Cardiovascular Cardiovascular Exam: Regular Rate, Normal Rhythm and Normal Heart Sounds; negative Systolic Murmur or Diastolic Murmur Abdominal Exam Abdominal Exam: Normal Inspection and Normal Bowel Sounds; negative Tenderness Rectal Rectal Exam: Deferred Exam: Male: Deferred Extremities Extremities Exam: Normal Capillary Refill and Edema Back Back Exam: Normal Inspection; negative (R) CVA Tenderness or (L) CVA Tenderness Neurologic Neurological Exam: Alert; negative Motor Sensory Deficit Psychiatric Psychiatric Exam: Flat Affect COURSE Treatment Treatment: SEE ORDERS DONE WHILE PATIENT WAS IN ER. PATIENT SLEEPY AND AROUSABLE. ZOFRAN 4MG WAS GIVEN TO PATIENT IV WHILE HE WAS IN ER. EKG ABDNORMAL TIMES 2. TROPONIN NORMAL TWICE. LABS, EKG AND CT REPORTS DISCUSSED WITH PATIENT. PATIENT WILL BE ADMITTED TO HOSPITAL FOR CONTINUING MOTORING. Consultation Consultation Comments: DISCUSSED PATIENT WITH DR. OLMOS. HE WILL ADMIT PATIENT. Education/Counseling Education/Counseling: Patient Educated On: Diagnosis ROR Labs Reviewed Laboratory Results Reviewed?: Yes Result Diagrams: 04/10/22 20:53 04/10/22 20:53 Laboratory: WBC 11.5 X10^3/uL (3.6-10.0) H 04/10/22 20:53 RBC 5.33 X10^6/uL (4.7-6.0) 04/10/22 20:53 Hgb 15.0 g/dL (13.5-18.0) 04/10/22 20:53 Hct 43.5 % (42.0-54.0) 04/10/22 20:53 MCV 81.7 fL (80.0-100.0) 04/10/22 20:53 MCH 28.2 pg (27.0-34.0) 04/10/22 20:53 MCHC 34.5 g/dL (33.0-35.0) 04/10/22 20:53 RDW 14.3 % (11.6-16.5) 04/10/22 20:53 Plt Count 276 X10^3/uL (150.0-450.0) 04/10/22 20:53 MPV 8.4 fL (7.4-11.0) 04/10/22 20:53 Neut % (Auto) 67.8 % (42.0-75.0) 04/10/22 20:53 Lymph % (Auto) 23.8 % (21.0-51.0) 04/10/22 20:53 [place] % (Auto) 7.2 % (0.0-13.0) 04/10/22 20:53 Eos % (Auto) 0.8 % (0.9-2.9) L 04/10/22 20:53 Baso % (Auto) 0.4 % (0.2-1.0) 04/10/22 20:53 Neut # (Auto) 7.8 x10^3/uL (2.2-4.8) H 04/10/22 20:53 Lymph # (Auto) 2.8 X10^3/uL (1.3-2.9) 04/10/22 20:53 [place] # (Auto) 0.8 x10^3/uL (0.3-0.8) 04/10/22 20:53 Eos # (Auto) 0.1 x10^3/uL (0.0-0.2) 04/10/22 20:53 Baso # (Auto) 0.0 X10^3/uL (0.0-0.1) 04/10/22 20:53 Absolute Nucleated RBC 0.1 /100WBC 04/10/22 20:53 Sodium 142 mmol/L (136-145) 04/10/22 20:53 Corrected Sodium 143 mmol/L (136-145) 04/10/22 20:53 Potassium 3.4 mmol/L (3.5-5.1) L 04/10/22 20:53 Chloride 104 mmol/L (98-107) 04/10/22 20:53 Carbon Dioxide 26.4 mmol/L (21-32) 04/10/22 20:53 BUN 16 mg/dL (7-18) 04/10/22 20:53 Creatinine 1.22 mg/dL (0.70-1.30) 04/10/22 20:53 Est GFR (MDRD) Af Amer > 60 (>60) 04/10/22 20:53 Est GFR (MDRD) Non-Af > 60 (>60) 04/10/22 20:53 Glucose 133 mg/dL (65-99) H 04/10/22 20:53 Calcium 8.9 mg/dL (8.5-10.1) 04/10/22 20:53 Corrected Calcium TNP 04/10/22 20:53 Total Bilirubin 0.50 mg/dL (0.2-1.0) 04/10/22 20:53 AST 25 Units/L (15-37) 04/10/22 20:53 ALT 40 Units/L (12-78) 04/10/22 20:53 Alkaline Phosphatase 89 Units/L (46-116) 04/10/22 20:53 Creatine Kinase 419 Units/L (39-308) H 04/11/22 00:29 Troponin I High Sens 36.3 ng/L (4.0-60.0) 04/11/22 00:29 Total Protein 8.3 g/dL (6.4-8.2) H 04/10/22 20:53 Albumin 3.7 g/dL (3.4-5.0) 04/10/22 20:53 Globulin 4.6 g/dL (2.5-4.5) H 04/10/22 20:53 Albumin/Globulin Ratio 0.8 Ratio (1.1-2.1) L 04/10/22 20:53 SARS-CoV-2 (PCR) Negative (NEGATIVE) 04/10/22 23:31 Influenza Type A (PCR) Negative (NEGATIVE) 04/10/22 23:31 Influenza Type B (PCR) Negative (NEGATIVE) 04/10/22 23:31 RSV (PCR) Negative (NEGATIVE) 04/10/22 23:31 XRAY XRAY Interpreted by: Radiologist (REPORTS NOTED.) and Self Opioid Opioid Risk Tool Age (Michael box if 16-45): Yes History of Preadolescent Sexual Abuse: No Total: 1 Total Score Risk Category: Low Risk Copyright: Lauri LUCIO predicting aberrant behaviors Discharge Plan Diagnosis Discharge Problem: Abnormal EKG, Diarrhea, Nausea and vomiting, Dizzy spells, Hypokalemia Discharge Plan Patient Disposition: 09 ADMITTED INPATIENT Condition: Stable
--- NOTE | 2022-04-10 20:39 | EKG ---
Test Reason : CHEST PAIN Blood Pressure : */* mmHG Vent. Rate : 63 BPM Atrial Rate : 63 BPM P-R Int : 164 ms QRS Dur : 96 ms QT Int : 460 ms P-R-T Axes : 37 33 188 degrees QTc Int : 470 ms Normal sinus rhythm Moderate voltage criteria for LVH, may be normal variant ( R in aVL , Aldo product ) ST elevation, consider early repolarization, pericarditis, or injury T wave abnormality, consider inferolateral ischemia Consider acute anteroseptal injury. Prolonged QT Abnormal ECG No previous ECGs available Confirmed by Horace Shah ([id number]) on 04/12/2022 8:58:30 AM Referred By: Confirmed By: Horace Shah
[2022-04-10] MEDS ORDERED: ZOFRAN INJ 4 MG VIAL IVP ONE (20:48)
[2022-04-10] MEDS ORDERED: ZOFRAN INJ 4 MG VIAL ONE (21:01)
[2022-04-10 21:07] LABS: MEAN CORPUSCULAR HEMOGLOBIN 28.2 pg (27.0-34.0); RED CELL DISTRIBUTION WIDTH 14.3 % (11.6-16.5)
[2022-04-10 21:11] LABS: BASOPHILS % (AUTO) 0.4 % (0.2-1.0); EOSINOPHILS # (AUTO) 0.1 x10^3/uL (0.0-0.2); EOSINOPHILS % (AUTO) 0.8 % (0.9-2.9); HEMATOCRIT 43.5 % (42.0-54.0); LYMPHOCYTES # (AUTO) 2.8 X10^3/uL (1.3-2.9); LYMPHOCYTES % (AUTO) 23.8 % (21.0-51.0); MEAN CORPUSCULAR HGB CONC 34.5 g/dL (33.0-35.0); MEAN CORPUSCULAR VOLUME 81.7 fL (80.0-100.0); MEAN PLATELET VOLUME 8.4 fL (7.4-11.0); MONOCYTES # (AUTO) 0.8 x10^3/uL (0.3-0.8); MONOCYTES % (AUTO) 7.2 % (0.0-13.0); NEUTROPHILS # (AUTO) 7.8 x10^3/uL (2.2-4.8); NEUTROPHILS % (AUTO) 67.8 % (42.0-75.0); RED BLOOD COUNT 5.33 X10^6/uL (4.7-6.0); WHITE BLOOD COUNT 11.5 X10^3/uL (3.6-10.0)
[2022-04-10 21:21] LABS: ALANINE AMINOTRANSFERASE 40 Units/L (12-78); ALBUMIN 3.7 g/dL (3.4-5.0); ALKALINE PHOSPHATASE 89 Units/L (46-116); ASPARTATE AMINO TRANSFERASE 25 Units/L (15-37); BLOOD UREA NITROGEN 16 mg/dL (7-18); CALCIUM 8.9 mg/dL (8.5-10.1); CARBON DIOXIDE 26.4 mmol/L (21-32); CHLORIDE 104 mmol/L (98-107); COR NA(FOR HYPERGLY) 143 mmol/L (136-145); CREATINE KINASE 445 Units/L (39-308); CREATININE 1.22 mg/dL (0.70-1.30); SODIUM 142 mmol/L (136-145); TOTAL PROTEIN 8.3 g/dL (6.4-8.2); eGFR NON BLACK RACES > 60 (>60)
[2022-04-10] MEDS ORDERED: NARCAN INJ IVP ONE (23:05)
[2022-04-10] MEDS ORDERED: NARCAN INJ ONE (23:10)
--- NOTE | 2022-04-11 | CT ---
STUDY: CT HEAD WITHOUT IV CONTRASTCOMPARISON: NoneTECHNIQUE: axial images were acquired of the head without IV contrast. Coronal and sagittal images were provided. All images were reviewed in a variety of windows and levels.LIMITATIONS: Please note that CT has low sensitivity and accuracy for identifying acute infarction. In addition, there are portions of the brain that are affected by beam hardening artifact which further greatly limits identification of an acute infarct.RADIATION REDUCTION TECHNIQUE: Automated exposure control, Adjustment of the mA and/or kV according to patient size, or iterative reconstruction techniques were used.HISTORY: AMSFINDINGS: Exam is considered limited due to patient positioning in that the sagittal and coronal reformats as well as the axial images are off midline. This can reduce the accuracy of the interpretation. Additional imaging with proper reformatting may be obtained as clinically indicated.There is no evidence of an acute intracranial bleed.There is no evidence of a mass or midline shift.There is no evidence of an extra-axial fluid collection.The pena-white matter differentiation is within normal limits.The visualized bones are unremarkable.The visualized sinuses are clear.The mastoid air cells are well-aerated.IMPRESSION:THERE IS NO EVIDENCE OF AN ACUTE INTRACRANIAL BLEEDEXAM IS CONSIDERED LIMITED DUE TO PATIENT POSITIONING IN THAT THE SAGITTAL AND CORONAL REFORMATS WELL THE AXIAL IMAGES ARE OFF MIDLINE. THIS CAN REDUCE THE ACCURACY OF THE INTERPRETATION. ADDITIONAL IMAGING WITH PROPER REFORMATTING MAY BE OBTAINED CLINICALLY INDICATED.Elect ronically signed by: Brandon Saavedra (Apr 10, 2022 23:59:15)
--- NOTE | 2022-04-11 00:01 | CT ---
PROCEDURE: CT Abdomen and Pelvis without Contrast .HISTORY: Nausea, vomiting, and diarrhea.TECHNIQUE: Axial images were performed through the abdomen and pelvis without the administration of IV contrast with multiplanar reformations . Oral contrast was not administered . Dose reduction techniques including Automated Exposure Control (AEC) and adjustment of mA and kV were utilized .COMPARISON: None .TECHNICAL QUALITY: Satisfactory .FINDINGS:Clear lung bases.Liver, spleen, adrenals, pancreas show no abnormality. Small splenule anterior to the spleen.Kidneys show no stones or obstruction.Normal biliary tract.No ascites or pneumoperitoneum.Normal aorta.No lymphadenopathy.2 cm omental umbilical hernia.No bowel obstruction or inflammation and normal appendix.Pelvis shows no masses or free fluid in normal urinary bladder.No acute bony abnormality.IMPRESSION:1. Small omental umbilical hernia.2. No other significant abnormality identified.Electronically signed by: Jesus Lilly (Apr 11, 2022 00:00:15)
--- NOTE | 2022-04-11 00:41 | EKG ---
Test Reason : abnormal EKG Blood Pressure : */* mmHG Vent. Rate : 61 BPM Atrial Rate : 61 BPM P-R Int : 158 ms QRS Dur : 90 ms QT Int : 464 ms P-R-T Axes : 33 42 114 degrees QTc Int : 467 ms Normal sinus rhythm Moderate voltage criteria for LVH, may be normal variant ( R in aVL , Sokolow-Otoole ) T wave abnormality, consider lateral ischemia Prolonged QT Abnormal ECG R/O early septal injury. When compared with ECG of 10-APR-2022 20:38, (Unconfirmed) T wave inversion no longer evident in Anterior leads Confirmed by Horace Shah (4) on 04/12/2022 8:57:41 AM Referred By: Confirmed By: Horace Shah
[2022-04-11] MEDS ORDERED: K-DUR TAB 20 MEQ PO ONE ×2 (01:02→01:04)
[2022-04-11 02:45] LABS: BILIRUBIN,URINE NEGATIVE (NEGATIVE); BLOOD/HEMOGLOBIN,URINE 1+ (NEGATIVE); GLUCOSE, URINE NEGATIVE (NEGATIVE); KETONES,URINE NEGATIVE (NEGATIVE); LEUKOCYTE ESTERASE ,URINE NEGATIVE (NEGATIVE); NITRITES,URINE NEGATIVE (NEGATIVE); PROTEIN,URINE 2+ (NEGATIVE); UROBILINOGEN,URINE 1+ (NORMAL)
[2022-04-11 02:51] LABS: APPEARANCE,URINE CLEAR (CLEAR); BACTERIA,URINE NEGATIVE /HPF (NEGATIVE); COLOR,URINE YELLOW (YELLOW); RBC,URINE 0-2 /HPF (0-3); SQUAMOUS EPITHELIAL CELL,UR RARE /HPF (NEGATIVE)
[2022-04-11 03:45] VITALS: BMI 47.3
--- NOTE | 2022-04-11 06:00 | EKG ---
Test Reason : EKG CHANGES Blood Pressure : */* mmHG Vent. Rate : 68 BPM Atrial Rate : 68 BPM P-R Int : 154 ms QRS Dur : 90 ms QT Int : 444 ms P-R-T Axes : 38 53 185 degrees QTc Int : 472 ms Normal sinus rhythm T wave abnormality, consider inferolateral ischemia Prolonged QT Abnormal ECG When compared with ECG of 11-APR-2022 00:39, (Unconfirmed) No significant change was found Confirmed by Horace Shah ([id number]) on 04/12/2022 8:57:00 AM Referred By: Confirmed By: Horace Shah
[2022-04-11 06:24] LABS: BASOPHILS % (AUTO) 0.3 % (0.2-1.0); EOSINOPHILS % (AUTO) 0.4 % (0.9-2.9); LYMPHOCYTES # (AUTO) 1.9 X10^3/uL (1.3-2.9); LYMPHOCYTES % (AUTO) 20.2 % (21.0-51.0); MEAN CORPUSCULAR HEMOGLOBIN 28.4 pg (27.0-34.0); MEAN CORPUSCULAR HGB CONC 34.8 g/dL (33.0-35.0); MEAN CORPUSCULAR VOLUME 81.8 fL (80.0-100.0); MEAN PLATELET VOLUME 8.6 fL (7.4-11.0); MONOCYTES # (AUTO) 0.6 x10^3/uL (0.3-0.8); MONOCYTES % (AUTO) 6.3 % (0.0-13.0); NEUTROPHILS # (AUTO) 6.9 x10^3/uL (2.2-4.8); NEUTROPHILS % (AUTO) 72.8 % (42.0-75.0); RED BLOOD COUNT 5.62 X10^6/uL (4.7-6.0); RED CELL DISTRIBUTION WIDTH 14.7 % (11.6-16.5); WHITE BLOOD COUNT 9.5 X10^3/uL (3.6-10.0)
[2022-04-11 06:31] LABS: ALANINE AMINOTRANSFERASE 40 Units/L (12-78); ALBUMIN 3.7 g/dL (3.4-5.0); ALKALINE PHOSPHATASE 92 Units/L (46-116); ASPARTATE AMINO TRANSFERASE 24 Units/L (15-37); BLOOD UREA NITROGEN 16 mg/dL (7-18); CALCIUM 9.1 mg/dL (8.5-10.1); CARBON DIOXIDE 32.4 mmol/L (21-32); CHLORIDE 102 mmol/L (98-107); CREATININE 1.28 mg/dL (0.70-1.30); SODIUM 142 mmol/L (136-145); TOTAL PROTEIN 8.5 g/dL (6.4-8.2); eGFR NON BLACK RACES > 60 (>60)
[2022-04-11] MEDS ORDERED: ZESTRIL TAB 10 MG ONE (07:33)
[2022-04-11] MEDS: ZESTRIL TAB 10 MG PO SCH (08:04)
--- NOTE | 2022-04-11 08:05 | RAD ---
HISTORYChest pain nausea vomitingSTUDYAP chestCOMPARISONReport only no image December 20, 2019FINDINGSHeart size normal with clear lungs and pleural spaces. There is no mediastinal or hilar abnormality.IMPRESSIONNo significant abnormality.Electronically signed by: LETY VO (Apr 11, 2022 08:04:17)
[2022-04-12 06:00] LABS: BASOPHILS % (AUTO) 0.5 % (0.2-1.0); EOSINOPHILS # (AUTO) 0.2 x10^3/uL (0.0-0.2); EOSINOPHILS % (AUTO) 2.7 % (0.9-2.9); HEMATOCRIT 41.7 % (42.0-54.0); HEMOGLOBIN 14.5 g/dL (13.5-18.0); LYMPHOCYTES # (AUTO) 2.8 X10^3/uL (1.3-2.9); LYMPHOCYTES % (AUTO) 36.2 % (21.0-51.0); MEAN CORPUSCULAR HEMOGLOBIN 28.2 pg (27.0-34.0); MEAN CORPUSCULAR HGB CONC 34.7 g/dL (33.0-35.0); MEAN CORPUSCULAR VOLUME 81.3 fL (80.0-100.0); MEAN PLATELET VOLUME 8.8 fL (7.4-11.0); MONOCYTES # (AUTO) 0.7 x10^3/uL (0.3-0.8); MONOCYTES % (AUTO) 9.4 % (0.0-13.0); NEUTROPHILS % (AUTO) 51.2 % (42.0-75.0); RED BLOOD COUNT 5.13 X10^6/uL (4.7-6.0); RED CELL DISTRIBUTION WIDTH 14.5 % (11.6-16.5); WHITE BLOOD COUNT 7.8 X10^3/uL (3.6-10.0)
[2022-04-12 06:30] LABS: ALANINE AMINOTRANSFERASE 34 Units/L (12-78); ALBUMIN 3.4 g/dL (3.4-5.0); ALKALINE PHOSPHATASE 80 Units/L (46-116); ASPARTATE AMINO TRANSFERASE 18 Units/L (15-37); BLOOD UREA NITROGEN 20 mg/dL (7-18); CALCIUM 8.3 mg/dL (8.5-10.1); CARBON DIOXIDE 29.7 mmol/L (21-32); CHLORIDE 105 mmol/L (98-107); CREATINE KINASE 285 Units/L (39-308); SODIUM 142 mmol/L (136-145); TOTAL PROTEIN 7.6 g/dL (6.4-8.2); eGFR NON BLACK RACES > 60 (>60)
[2022-04-12] MEDS: ZESTRIL TAB 10 MG PO SCH ×2 (09:02→20:46)
[2022-04-12] MEDS ORDERED: TYLENOL 325 MG TAB PO PRN (09:05)
[2022-04-12] MEDS ORDERED: POTASSIUM CHLORIDE LIQ 20 MEQ UDC PO PRN (09:38)
[2022-04-12] MEDS ORDERED: POTASSIUM CHL 40 MEQ/NS 0.45% 500 ML IV PRN (09:38)
[2022-04-12] MEDS ORDERED: POTASSIUM CHL 60 MEQ/NS 0.45% 500 ML IV PRN (09:38)
[2022-04-12] MEDS ORDERED: KLOR-CON PO PRN (09:38)
[2022-04-12] MEDS ORDERED: K-RIDER 10 MEQ/NS 100 ML 10 MEQ/100 ML BAG IV PRN (09:38)
[2022-04-12] MEDS ORDERED: MICRO K EXTEN CAP 10 MEQ PO PRN (09:38)
--- NOTE | 2022-04-12 12:14 | DR.H&P ---
H&P - History & Physical for Day of: H&P Date: 04/11/22 - Chief Complaint Chief Complaint: NAUSEA, VOMITING, DIZZINESS, WEAKNESS - History of Present Illness History of Present Illness: IS A 46 YEAR OLD PATIENT OF OURS. HE PRESENTED TO THE EMERGENCY ROOM WITH COMPLAINTS OF NAUSEA, VOMITING, GENERALIZED WEAKNESS, AND DIZZINESS. PATIENT REPORTS THAT THE DIZZINESS STARTED BEFORE THE NAUSEA AND VOMITING. ON ARRIVAL, HE WAS NOTED TO BE DROWSY, BUT AROUSABLE. FAMILY MEMBERS REPORT THAT PATIENT TOOK A XANAX PRIOR TO COMING TO THE ER. PATIENT DOES NOT USUALLY TAKE XANAX. IT WAS GIVEN TO HIM BY A FAMILY MEMBER. PATIENT HAS A HISTORY OF HTN, BUT IS GENERALLY NON-COMPLIANT WITH MEDICATIONS. ON ARRIVAL TO THE ER, HIS VITALS WERE: 97.6-59-18-96%-180/70. LABS WERE OBTAINED. WBC 11.5, RBC 5.33, HGB 15.0, HCT 43.5, SODIUM 142, POTASSIUM 3.4, CHLORIDE 104, BUN 16, CREATININE 1.22, GLUCOSE 133, CALCIUM 8.9, AST 25, ALT 40, ALK PHOS 89, CREATINE KINASE 445, TROPONIN 28.4, TOTAL PROTEIN 8.3, ALBUMIN 3.7, GLOBULIN 4.6. URINALYSIS WAS OBTAINED AND WAS UNREMARKABLE. URINE DRUG SCREEN WAS NEGATIVE. COVID, INFLUENZA, AND RSV NEGATIVE. A CHEST XRAY WAS OBTAINED AND REVEALED: Heart size normal with clear lungs and pleural spaces. There is no mediastinal or hilar abnormality. ABDOMEN/PELVIS CT WITHOUT CONTRAST WAS OBTAINED AND REVEALED: 1. Small omental umbilical hernia. 2. No other significant abnormality identified. A BRAIN CT WITHOUT CONTRAST WAS OBTAINED AND REVEALED: There is no evidence of an acute intracranial bleed. There is no evidence of a mass or midline shift. There is no evidence of an extra-axial fluid collection. The pena-white matter differentiation is within normal limits. The visualized bones are unremarkable. The visualized sinuses are clear. The mastoid air cells are well-aerated. There is debris in the right and left external ear canal which may represent cerumen. EKG WAS OBTAINED AND REVEALED NORMAL SINUS RHYTH, ST ELEVATION, PROLONGED QT, T WAVE ABNORMALITY, CONSIDER INFEROLATERAL ISCHEMIA. HR 63 BPM. HIS CARDIAC ENZYMES WERE REPEATED FOUR HOURS AFTER THE INITIAL SET. CREATINE KINASE DECREASED FROM 445 TO 419. TROPONIN INCREASED FROM 28.4 TO 36.3 (STILL WITHIN NORMAL RANGE). IN THE ER, HE WAS GIVEN K-DUR 20MEQ X 1 DOSE. HE WAS ADMITTED TO THE HOSPITAL FOR FURTHER EVALUATION AND TREATMENT OF ABNORMAL EKG, DIZZINESS, NAUSEA AND VOMITING, HYPOKALEMIA, AND HTN. HE WAS STARTED ON THE POTASSIUM AND MAGNESIUM PROTOCOLS, TYLENOL 650MG PO Q4H PRN, ZESTRIL 10MG DAILY. WE WILL OBTAIN SERIAL CARDIAC ENZYMES AND EKGS AND CONTINUE TO MONITOR. TIME SPENT ON CLINICAL ASSESSMENT, REVIWING LABS AND IMAGING, DECISION MAKING, AND DOCUMENTATION GREATER THAN 75 MINUTES. - Past Medical History Past Medical History: Hypertension - Past Surgical History Surgical History: Ortho Surgery - Family History Family Medical History: Hypertension - Social History Does patient currently use any type of tobacco product: Yes (Dip) Have you used tobacco products in the last 12 months: Yes Type of Tobacco Use: None Does any household member use tobacco: No Alcohol Use: Occasionally Drug Use: None - Medications Home Medications: No Known Drug Allergies Allergy (Verified 12/08/19 18:00) CONTINUE taking the following medications oxycodone 30 mg tablet 1 tab PO BID PRN 04/10/22 [History] - Review of Systems Constitutional: Weakness Eyes: No Symptoms Reported ENT: No Symptoms Reported Respiratory: No Symptoms Reported Cardiovascular: Light Headedness Gastrointestinal: Nausea, Vomiting. denies: Diarrhea, Constipation, Melena, Hematochezia Genitourinary: No Symptoms Reported Musculoskeletal: No Symptoms Reported Skin: No Symptoms Reported Neurological: Weakness - Physical Exam Vital Signs: Temperature 98.3 F Pulse Rate [Left Brachial] 78 Pulse Rate 73 Respiratory Rate 18 Blood Pressure [Left Arm] 160/97 Blood Pressure 143/82 O2 Sat by Pulse Oximetry 94 Oriented: Normal Eyes: Normal Ear: Normal Nose: Normal Throat: Normal Respiratory: Clear Throughout Cardiovascular: Bradycardia : Normal Auscultation: Bowel Sounds: Normal Palpation: Normal Tenderness: Normal Skin: Normal Musculoskeletal: Normal Psychiatric: Normal Mood Description: Calm Affect: Normal Speech Pattern: Clear - Assessment/Plan (1) Abnormal EKG Status: Acute Plan: ADMIT, SERIAL CARDIAC ENZYMES AND EKGS, TELEMETRY, POTASSIUM AND MAGNESIUM PROTOCOLS, TYLENOL 650MG PO Q4H PRN, ZESTRIL 10MG DAILY. (2) Nausea & vomiting Qualifiers: Vomiting type: unspecified Qualified Code(s): R11.2 - Nausea with vomiting, unspecified Status: Acute (3) Dizzy spells Status: Acute (4) Hypokalemia Status: Acute (5) HTN (hypertension) Qualifiers: Hypertension type: primary hypertension Qualified Code(s): I10 - Essential (primary) hypertension Status: Chronic - Allergies Allergies/Adverse Reactions: Allergies Allergy/AdvReac Type Severity Reaction Status Date / Time No Known Drug Allergies Allergy Verified 12/08/19 18:00
[2022-04-12] MEDS: ECOTRIN TAB 325 MG PO SCH (13:56)
[2022-04-12] MEDS: K-DUR TAB 20 MEQ PO PRN (17:00)
[2022-04-12] MEDS: MAXZIDE 37.5/25 MG PO SCH (18:18)
[2022-04-12] MEDS ORDERED: CRESTOR TAB 10 MG PO SCH (21:00)
[2022-04-13] MEDS: K-DUR TAB 20 MEQ PO PRN (00:06)
[2022-04-13 06:18] LABS: BASOPHILS % (AUTO) 0.5 % (0.2-1.0); EOSINOPHILS # (AUTO) 0.2 x10^3/uL (0.0-0.2); EOSINOPHILS % (AUTO) 3.4 % (0.9-2.9); HEMATOCRIT 42.6 % (42.0-54.0); HEMOGLOBIN 14.7 g/dL (13.5-18.0); LYMPHOCYTES # (AUTO) 2.7 X10^3/uL (1.3-2.9); LYMPHOCYTES % (AUTO) 39.7 % (21.0-51.0); MEAN CORPUSCULAR HEMOGLOBIN 28.5 pg (27.0-34.0); MEAN CORPUSCULAR HGB CONC 34.6 g/dL (33.0-35.0); MEAN CORPUSCULAR VOLUME 82.4 fL (80.0-100.0); MEAN PLATELET VOLUME 8.5 fL (7.4-11.0); MONOCYTES # (AUTO) 0.6 x10^3/uL (0.3-0.8); MONOCYTES % (AUTO) 9.4 % (0.0-13.0); NEUTROPHILS # (AUTO) 3.2 x10^3/uL (2.2-4.8); RED BLOOD COUNT 5.17 X10^6/uL (4.7-6.0); RED CELL DISTRIBUTION WIDTH 14.8 % (11.6-16.5); WHITE BLOOD COUNT 6.8 X10^3/uL (3.6-10.0)
[2022-04-13 06:27] LABS: ALANINE AMINOTRANSFERASE 36 Units/L (12-78); ALBUMIN 3.5 g/dL (3.4-5.0); ALKALINE PHOSPHATASE 84 Units/L (46-116); ASPARTATE AMINO TRANSFERASE 21 Units/L (15-37); BLOOD UREA NITROGEN 19 mg/dL (7-18); CALCIUM 8.8 mg/dL (8.5-10.1); CARBON DIOXIDE 31.4 mmol/L (21-32); CHLORIDE 106 mmol/L (98-107); SODIUM 142 mmol/L (136-145); TOTAL PROTEIN 7.7 g/dL (6.4-8.2); eGFR NON BLACK RACES 54 (>60)
[2022-04-13] MEDS: ZESTRIL TAB 10 MG PO SCH (08:44)
[2022-04-13] MEDS: ECOTRIN TAB 325 MG PO SCH (08:44)
[2022-04-13] MEDS: MAXZIDE 37.5/25 MG PO SCH (08:44)
[2022-04-13 12:21] VITALS: BP 158/97
== END 2022-04-13 13:00 | disposition home or self-care (01) ==
LOC: ER 20:05 → MED/SURG 20:05
PROVIDERS: ADMIT Family Medicine; ATTEND Internal Medicine
DX: E87.6 Hypokalemia; R11.2 Nausea with vomiting, unspecified; R19.7 Diarrhea, unspecified; K42.9 Umbilical hernia without obstruction or gangrene; R42 Dizziness and giddiness; R94.31 Abnormal electrocardiogram [ECG] [EKG]; I10 Essential (primary) hypertension; Z20.822 Contact with and (suspected) exposure to COVID-19; R77.8 Other specified abnormalities of plasma proteins; R07.89 Other chest pain; Z91.14 Patient's other noncompliance with medication regimen